=== PATIENT | female | born 1960 | race Caucasian/White ===

== ENCOUNTER → 2017-02-25 10:31 | Outpatient (CLI) | payer MEDICARE, SELFPAY ==
--- NOTE | 2017-02-25 10:28 | CT_ITS ---
CT abdomen pelvis w con CLINICAL INDICATION: ITS.REASON: ABD PAIN VENTRAL HERNIA ORDERING PHYSICIAN: Jean-Claude Harvey MD PATIENT AGE: 57 years COMPARISON: None TECHNIQUE: Axial images obtained with sagittal and coronal reformats. PROCEDURE: Oral Contrast: Redicat IV Contrast: 75 mL of Isovue-[id number]. FINDINGS: There are atelectatic or fibrotic changes in the lung bases. There is a 6 mm nodular opacity in the right middle lobe nonspecific. There is mild diffuse hepatic steatosis with no obvious focal liver lesions. There are few small lymph nodes in the right pericardial region. The spleen, pancreas, and adrenal glands are unremarkable. There has been prior cholecystectomy without ductal dilatation. No obstructing renal or ureteral calculi are evident. There is a 16 mm isodensity involving the left kidney anteriorly and centrally within additional 16mm isodensity involving the left kidney inferiorly and posteriorly. This may only be due to renal cysts however they're somewhat more dense than what one would expect on CT. Recommend renal ultrasound for further evaluation. It may be difficult to adequately assess these lesions on ultrasound due to patient's body habitus. MRI may be needed if ultrasound is inconclusive. No intestinal obstruction or free air. No evidence of appendicitis or diverticulitis. There is a small ventral abdominal wall hernia containing fat 5 cm superior to the level the umbilicus. No pelvic mass, abnormal fluid collection, or focal inflammatory change. There has been prior hysterectomy. Mild degenerative disc disease L5-S1. IMPRESSION: 1. Small ventral abdominal wall hernia containing fat 5 cm superior to the umbilicus 2. There are 2 indeterminate left renal lesions at 16 mm each. Consider ultrasound for further evaluation. If ultrasound is inconclusive then MRI may be needed. Follow-up is recommended
[2017-02-25 11:11] LABS: Blood Urea Nitrogen 20 mg/dL (7-18); Creatinine,Serum 0.93 mg/dL (0.55-1.02); Estimated Glomerular Filt Rate 62 ml/min (>60); GFR (African American) 75 ML/MIN (>60)
== END ==
PROVIDERS: PCP Family Medicine; Visit Provider Surgery
DX: K43.9 Ventral hernia without obstruction or gangrene (principal); R10.33 Periumbilical pain
CPT/HCPCS: 36415; 74177; 82565; 84520; Q9967

== ENCOUNTER → 2017-03-11 13:48 | Outpatient (CLI) | payer MEDICARE, SELFPAY ==
--- NOTE | 2017-03-11 13:52 | US_ITS ---
US retroperitoneal comp HISTORY: Follow-up renal cyst, renal lesions, abnormal CT scan ITS.REASON: ABNORMAL CT SCAN ORDERING PHYSICIAN: Jean-Claude Harvey MD PATIENT AGE: 57 years COMPARISON: None FINDINGS: Study is technically limited due to patient's body habitus. RIGHT KIDNEY:11 x 5 x 7 cm. No hydronephrosis or renal mass. Unremarkable appearing right kidney LEFT KIDNEY:10 x 5 x 6 cm. There is a 13 x 9 mm hypoechoic area in the mid polar region of the left kidney may be due to small cyst. A 12 mm hypoechoic area is present inferiorly and a 12 mm hypoechoic areas noted in the mid aspect of the kidney. These however cannot be determined be simple cyst by ultrasound. They may represent complex cysts or solid lesions. OTHER FINDINGS: No other pertinent findings IMPRESSION: Indeterminate sonographic findings of the left kidney. Nodules in the mid and lower pole not confirmed to be simple cysts by ultrasound. Study is however extremely limited due to patient's body habitus. MRI may provide more thorough evaluation to determine cystic or solid nature of the lesions. Alternatively, a 3-4 month follow-up CT with contrast could be performed to confirm short-term stability.
== END ==
PROVIDERS: PCP Family Medicine; Visit Provider Surgery
DX: N28.9 Disorder of kidney and ureter, unspecified (principal)
CPT/HCPCS: 76770

== ENCOUNTER → 2017-06-03 14:10 | Outpatient (CLI) | payer MEDICARE, SELFPAY ==
[2017-06-03 14:35] LABS: Basophils % 0.4 % (0.1-2.0); Eosinophils # 0.2 K/mm3 (0.0-0.4); Eosinophils % 1.6 % (0.1-12.0); Hematocrit 38.2 % (37.0-47.0); Lymphocytes # 2.6 K/mm3 (0.7-4.5); Lymphocytes % 25.4 K/mm3 (10-50); Mean Corpuscular HGB Conc 31.5 g/dL (31.8-35.4); Mean Corpuscular Hemoglobin 27.8 pg (27.0-31.2); Mean Platelet Volume 7.7 fl (7.4-10.4); Monocytes # 0.5 K/mm3 (0.1-1.0); Monocytes % 4.3 % (1.7-9.3); Neutrophils # 7.1 K/mm3 (1.8-7.8); Neutrophils % 68.3 % (37.0-80.0); Platelet Count 290 K/mm3 (142-424); Red Blood Count 4.34 M/mm3 (4.20-5.40); Red Cell Distribution Width 15.3 % (11.5-17.5); White Blood Count 10.4 K/mm3 (4.8-10.8)
[2017-06-03 15:45] LABS: Anion Gap 14.1 mEq/L (5-15); Blood Urea Nitrogen 15 mg/dL (7-18); Carbon Dioxide 28 mmol/L (21.0-32.0); Chloride 103 mmol/L (98-107); Creatinine,Serum 0.89 mg/dL (0.55-1.02); Estimated Glomerular Filt Rate 65 ml/min (>60); GFR (African American) 79 ML/MIN (>60); Glucose 133 mg/dL (74-106); Potassium 4.1 mmoL/L (3.5-5.1); Sodium 141 mmol/L (136-145)
== END ==
PROVIDERS: Visit Provider Surgery
DX: Z01.818 Encounter for other preprocedural examination (principal); K43.9 Ventral hernia without obstruction or gangrene
CPT/HCPCS: 36415; 80048; 85025